=== PATIENT | male | born 1940 | race Caucasian/White ===

== ENCOUNTER → 2017-03-22 | Day surgery (SDC) | payer MEDICARE ==
[~2017-03-22] MED LIST: ACETAMINOPHEN 1000 MG/100 ML 100 ML IV ONE; BACITRACIN TOP OINT 15 GM TUBE ONE; KETOROLAC TROMETHAMINE 30 MG/ML (IVP) VIAL IV PUSH ONE; LIDOCAINE 1.5%/EPINEPHrine 1:200,000 PF SOLN 30 ML AMP ONE; ONDANSETRON HCL 4 MG/2 ML VIAL IV PUSH ONE; PROPOFOL 200 MG/20 ML AMP IV ONE
--- NOTE | 2017-03-22 15:33 | TN ---
cc: GUERO DERAS M.D. DATE OF SURGERY: 03/22/2017 PREOPERATIVE DIAGNOSIS Left upper extremity skin cancer, 5 cm diameter. POSTOPERATIVE DIAGNOSIS Left upper extremity skin cancer, 5 cm diameter. PROCEDURE Wide local excision left upper extremity skin cancer, 5 x 12 cm excision with multilayered closure. SURGEON Dr. Guero Deras. [employer] Roxanne Simmons, MS III ANESTHESIA General. INDICATIONS A very pleasant 76-year-old gentleman who has developed fairly acutely a large volcanic-appearing mass in his left upper extremity. It measures about 5 cm in diameter and is highly suspicious for skin cancer, most likely squamous cell carcinoma. Recommendations are made for wide local excision. INTRAOPERATIVE FINDINGS Specimen sent to pathology with a short stitch at 12 o'clock, long stitch at 3 o'clock. Estimated blood loss less than 10 mL. DESCRIPTION OF PROCEDURE IN DETAIL The patient was identified as Lex Maldonado, taken to the operating room and placed in the supine position. Sequential compression devices were placed on bilateral lower extremities. Following induction of adequate general anesthesia with a laryngeal mask the left upper extremity was prepped and draped in usual sterile fashion with Betadine. A time-out procedure was performed. Following completion of time-out procedure to everyone's satisfaction within the room, a proposed incision was made with a marking pen elliptical in nature and longitudinal in orientation. The incision was infiltrated with local anesthetic. Local anesthetic was placed beneath the area of concern as well. Incision was carried out with scalpel and hemostasis was controlled with electrocautery. Specimen was removed in its entirety with a combination of sharp dissection and electrocautery. Specimen was marked and sent to pathology for permanent section. Skin and subcutaneous fatty tissue was undermined circumferentially to allow for closure. The wound was copiously irrigated with saline. Once the wound was sure to be dry it was closed in layers using 2-0 Vicryl, 3-0 Vicryl and 4-0 Nylon. Dressing was applied with antibiotic ointment, 4x4s, Robert and Coban. The patient tolerated the procedure without apparent complication. Sponge, needle and instrument counts were correct at the end of the case. MD TABATHA Dsouza/QUYNH /3:13 PM /3:22 PM
== END | disposition home or self-care (01) ==
LOC: ESDC 11:44
PROVIDERS: ATTEND Surgery Trauma Surgery
DX: C44.629 Squamous cell carcinoma of skin of left upper limb, including shoulder (principal)
CPT/HCPCS: 00400; 11606; 12032; 88305; J0131; J1885; J2405; 88307; 88311